=== PATIENT | male | born 1995 | race Caucasian/White ===

== ENCOUNTER 2017-08-04 23:15 | Emergency (ER) | payer BC, OTHER ==
[~2017-08-04] VITALS: Ht 182.9 cm; Wt 90.9 kg
[2017-08-04 23:20] VITALS: Ht 182.9 cm; Wt 90.9 kg
--- NOTE | 2017-08-05 02:21 | EMERGENCY ROOM VISIT NOTE ---
History Report prepared by [employer]: Shashank Anthony Under the Supervision of: Dr. Nba Agustin M.D. First contact with patient: 23:21 Chief Complaint: ALCOHOL OVERDOSE Stated Complaint: ALCOHOL OVERDOSE History of Present Illness The patient is a 21 year old male who presents to the Emergency Room with complaints of alcohol intoxication and was brought in by the police. Per nursing , the patient was found sleeping on the ground in [facility]. The patient admits that he consumed too much alcohol. He denies any injury or trauma. Per nursing, the patient's breathalyzer read [id number]. She reports that the patient was vomiting. He denies medical problems or allergies. Source of History: patient, nursing staff Onset: prior to arrival Position: other (global) Quality: other (intoxication) Associated Symptoms: + vomiting Review of Systems Limited due to alcohol intoxication Past Medical & Surgical The patient reports no pertinent medical or surgical history. Family History Patient reports no known family medical history. Social History Housing Status: lives with roommate Occupation Status: [employer] student Current/Historical Medications No Active Prescriptions or Reported Meds Allergies Coded Allergies: No Known Allergies (Unverified , 08/04/17) Physical Exam Vital Signs Date Time Temp Pulse Resp B/P (MAP) Pulse Ox O2 Delivery O2 Flow Rate FiO2 08/05/17 02:01 87 12 124/47 96 Room Air 08/05/17 01:24 88 12 138/70 95 Room Air 08/05/17 00:49 94 12 124/62 97 Room Air 08/05/17 00:29 111 10 116/94 97 Room Air 08/04/17 23:29 Room Air 08/04/17 23:24 96 08/04/17 23:20 88 18 140/84 98 Room Air Physical Exam Constitutional: Vital signs reviewed. Eyes: Pupils are equal round reactive to light. Conjunctiva are noninjected. ENT: Pharynx is clear without erythema or exudate. Mucous membranes are moist. Neck supple without meningeal signs. Respiratory: Clear to auscultation bilaterally. Breath sounds are equal bilaterally. Cardiovascular: Regular rate and rhythm. No rubs or gallops. GI: Soft, nondistended and nontender. Bowel sounds are present. Musculoskeletal: No evidence of trauma. Integumentary: No cyanosis. Neurological: The patient is somnolent but arousable. No focal deficits. Psychiatric: Appears intoxicated. Smell of alcohol on breath. Medical Decision & Procedures ED Course 2321: The patient was evaluated in room A09B. A complete history and physical exam was performed. 0056: The patient is sleeping on the monitor. 0230: The patient was signed out to Dr. Black. Medical Decision This is a 21-year-old male who presents with presumed alcohol intoxication. Additional history was obtained from the nurse due to the patient's condition. Differential diagnosis: Etiologies such as alcohol intoxication, illicit drug use as well as others were considered. ER treatment provided: The patient was placed on a continuous inspector eyeglass frames and pulse oximetry. Disposition: The patient was signed out to Dr. Black. Medication Reconcilliation Current Medication List: was personally reviewed by me Blood Pressure Screening Patient's blood pressure: Elevated blood pressure Impression Primary Impression: Alcoholic intoxication Scribe Attestation The scribe's documentation has been prepared under my direct and personally reviewed by me in its entirety. I confirm that the note above accurately reflects all work, treatment, procedures, and medical decision making performed by me. Departure Information Dispostion Still a Patient Prescriptions No Active Prescriptions or Reported Meds Patient Instructions My [facility] Problem Qualifiers Primary Impression: Alcoholic intoxication Complication of substance-induced condition: uncomplicated Qualified Codes: F10.920 - Alcohol use, unspecified with intoxication, uncomplicated
--- NOTE | 2017-08-05 06:09 | EMERGENCY ROOM VISIT NOTE ---
ED Visit Note First contact with patient: 06:03 Patient signed out to me by Dr. Agustin for repeat evaluation following sobriety. He was observed in the emergency room overnight without incident. On my repeat evaluation this morning patient is awake and alert with clear speech, steady gait, asking to be discharged. Patient admits to excessive alcohol consumption , but denies any current pain, trouble breathing, nausea or vomiting. Patient appears well here, discussed symptoms to watch and return for, he verbalized understanding was agreeable with plan.
[2017-08-05 06:12] VITALS: BP 154/79; PULSE 100; O2SAT 99
== END 2017-08-05 06:12 | disposition home or self-care (01) ==
LOC: C.EDA 23:17
DX: F10.129 Alcohol abuse with intoxication, unspecified (principal)